=== PATIENT | female | born 1940 ===

== ENCOUNTER → 2017-10-23 14:23 | Outpatient (REF) | payer MEDICARE, SELFPAY ==
[2017-10-23 15:01] LABS: BUN Creatinine Ratio 24.4 (6-22); Blood Urea Nitrogen 22 mg/dL (7-17); Estimated Glomerular Filt Rate > 60.0 mL/min (>60)
== END ==
LOC: LAB 14:23
PROVIDERS: PCP Physician Assistant; Visit Provider Physician Assistant
DX: R91.1 Solitary pulmonary nodule (principal)
CPT/HCPCS: 82565; 84520